=== PATIENT | male | born 1990 | race Caucasian/White ===

== ENCOUNTER 2025-06-16 16:18 | Emergency (ER) | payer SELFPAY ==
[~2025-06-16] VITALS: Ht 170.2 cm; Wt 72.7 kg
[2025-06-16 16:40] VITALS: BP 117/71; PULSE 119; RESP 18; TEMP 98.2; O2SAT 98
[2025-06-16] MEDS: IBUPROFEN 600 MG TABLET PO ONE (16:49)
[2025-06-16] MEDS: ACETAMINOPHEN 500 MG TABLET PO ONE (16:49)
[2025-06-16] MEDS: BACITRACIN 0.9 GM PACKET OINTMENT TP ONE (16:49)
== END 2025-06-16 16:53 ==
LOC: EMS 16:18 → EDBD 16:18 → EMS 16:53
DX: S00.81XA Abrasion of other part of head, initial encounter (principal); Z65.3 Problems related to other legal circumstances; Z02.89 Encounter for other administrative examinations; X58.XXXA Exposure to other specified factors, initial encounter; Y93.89 Activity, other specified; Y92.89 Other specified places as the place of occurrence of the external cause; Y99.8 Other external cause status
CPT/HCPCS: 99284; Z7502; Z7610